=== PATIENT | female | born 1975 | race Caucasian/White ===

== ENCOUNTER 2017-08-18 15:29 | Outpatient (CLI) | payer BC ==
--- NOTE | 2017-08-19 09:25 | Mammography Report ---
DIGITAL SCREENING MAMMOGRAM: 08/18/2017 COMPARISON: 05/20/2014 and 06/01/2012. TECHNIQUE: Bilateral digital CC and MLO projections. FINDINGS: The breast tissue is heterogeneously dense. There is an area of increased density in the mid 12 o'clock position of the right breast, which may represent superimposition of structures. Further evaluation by spot compression views and ultrasound if needed are suggested. Otherwise, no dominant mass, architectural distortion, skin thickening, suspicious microcalcifications or other finding. IMPRESSION: NEGATIVE LEFT BREAST. NEEDS ADDITIONAL EVALUATION RIGHT BREAST BI- RADS 0. STANDARD QUALIFYING STATEMENTS: 1. This examination was reviewed with the aid of Computer-Aided Detection (CAD) . 2. A negative or benign imaging report should not delay biopsy if clinically suspicious findings are present. Consider surgical consultation if warranted. More than 5 % of cancers are not identified by imaging. 3. Dense breasts may obscure an underlying neoplasm. TD: 08/19/2017 09:24 DARIUS
== END 2017-08-18 15:30 | disposition home or self-care (01) ==
LOC: DI.N 15:29
PROVIDERS: ATTEND Physician Assistant Medical
DX: Z12.31 Encounter for screening mammogram for malignant neoplasm of breast (principal); R92.8 Other abnormal and inconclusive findings on diagnostic imaging of breast
CPT/HCPCS: 77067

== ENCOUNTER 2021-07-23 09:26 | Observation (INO) | payer BC, OTHER ==
[2021-07-23] MEDS ORDERED: SODIUM CHLORIDE 0.9% 1,000 ML IV STA (09:38)
--- NOTE | 2021-07-23 10:11 | ED Physician Documentation ---
PD HPI FEMALE - Stated complaint Stated Complaint: FEMALE - Chief complaint Chief Complaint: Abd Pain - History obtained from History obtained from: Patient - Additional information Additional information: The patient comes to the emergency department chief complaint of vaginal bleeding for 2 weeks. The patient states that she has been having shorter heavier periods for several years, but that those have been fairly regular and constant. However, she states her period started 2 weeks ago and just has not stopped. She states she will have some hours to a day or so with no bleeding and then all of a sudden, she passes a whole bunch of clots and has heavy bleeding following. She states she is felt a little bloated in her lower abdomen but denies any actual pain. No nausea or vomiting. No fevers. She is not . No known history of fibroids. She is not on anticoagulation. The patient states she has felt somewhat weak and a little short of breath recently and feels that she is paler than usual. No other complaints at this time. She is sexually active with her , who has had a vasectomy. Review of Systems Ten Systems: 10 systems reviewed and negative Constitutional: reports: Reviewed and negative Eyes: reports: Reviewed and negative Ears: reports: Reviewed and negative Nose: reports: Reviewed and negative Throat: reports: Reviewed and negative Cardiac: reports: Reviewed and negative Respiratory: reports: Reviewed and negative GI: reports: Reviewed and negative : reports: Vaginal bleeding Skin: reports: Reviewed and negative Musculoskeletal: reports: Reviewed and negative Neurologic: reports: Reviewed and negative Psychiatric: reports: Reviewed and negative Endocrine: reports: Reviewed and negative Immunocompromised: reports: Reviewed and negative PD PAST MEDICAL HISTORY - Past Medical History Past Medical History: No - Past Surgical History Past Surgical History: No - Present Medications Home Medications: Ambulatory Orders Medication Instructions Recorded Confirmed Albuterol Sulfate [Proair 90 mcg IH QID PRN 07/23/21 07/23/21 Digihaler] - Allergies Allergies/Adverse Reactions: Allergies Allergy/AdvReac Type Severity Reaction Status Date / Time Penicillins Allergy Unknown Verified 07/23/21 09:35 - Social History Does the pt smoke?: No Smoking Status: Never smoker PD ED PE NORMAL - Vitals Vital signs reviewed: Yes - General General: Alert and oriented X 3, No acute distress, Well developed/nourished - HEENT HEENT: Atraumatic, PERRL, EOMI, Moist mucous membranes - Neck Neck: Supple, no meningeal sign - Cardiac Cardiac: RRR, No murmur - Respiratory Respiratory: No respiratory distress, Clear bilaterally - Abdomen Abdomen: Soft, Non distended, Other (Mild suprapubic tenderness, no rebound or guarding. No palpable masses.) - Derm Derm: Warm and dry, No rash, Other (Moderate pallor) - Extremities Extremities: No deformity, No edema - Neuro Neuro: Alert and oriented X 3, lead nurse 2-12 intact, Normal speech, Other (Grossly intact) - Psych Psych: Normal mood, Normal affect Results - Vitals Vitals: Oxygen O2 Source Room air - Labs Labs: Laboratory Tests 07/23/21 07/23/21 07/23/21 09:48 09:48 09:48 WBC 9.1 RBC 3.01 L Hgb 4.4 L* Hct 18.5 L* MCV 61.5 L MCH 14.6 L MCHC 23.8 L RDW 22.5 H Plt Count 280 Neut # (Auto) 6.4 Lymph # (Auto) 1.9 Hockley # (Auto) 0.5 Eos # (Auto) 0.1 Baso # (Auto) 0.1 Absolute Nucleated RBC 0.04 Nucleated RBC % 0.4 Manual Slide Review Indicated WBC Morphology NORMAL APPEARANCE Platelet Estimate NORMAL (130-450,000) Platelet Morphology NORMAL APPEARANCE RBC Morph Micro Appear 2+ POIKILOCYTOSIS PT 13.3 H INR 1.2 Sodium Potassium Chloride Carbon Dioxide Anion Gap BUN Creatinine Estimated GFR (MDRD) Glucose Calcium Total Bilirubin AST ALT Alkaline Phosphatase Total Protein Albumin Globulin Albumin/Globulin Ratio Lipase Serum HCG, Qual Blood Type O POSITIVE Blood Type Recheck Antibody Screen NEGATIVE Crossmatch IS Only See Detail 07/23/21 07/23/21 07/23/21 09:48 09:48 11:03 WBC RBC Hgb Hct MCV MCH MCHC RDW Plt Count Neut # (Auto) Lymph # (Auto) [place] # (Auto) Eos # (Auto) Baso # (Auto) Absolute Nucleated RBC Nucleated RBC % Manual Slide Review WBC Morphology Platelet Estimate Platelet Morphology RBC Morph Micro Appear PT INR Sodium 136 Potassium 3.5 Chloride 103 Carbon Dioxide 22 Anion Gap 11.0 BUN 14 Creatinine 0.8 Estimated GFR (MDRD) 78 L Glucose 119 H Calcium 8.9 Total Bilirubin 0.7 AST 17 ALT 16 Alkaline Phosphatase 53 Total Protein 7.4 Albumin 4.1 Globulin 3.3 Albumin/Globulin Ratio 1.2 Lipase 30 Serum HCG, Qual NEGATIVE Blood Type Blood Type Recheck O POSITIVE Antibody Screen Crossmatch IS Only - Rads (name of study) pelvic US Radiology: Prelim report reviewed, Final report received, See rad report PD MEDICAL DECISION MAKING - ED course Complexity details: reviewed results, re-evaluated patient, considered differential, d/w patient ED course: The patient was hemodynamically stable in the emergency department. She was given a liter 0.9 normal saline and worked up with labs and ultrasound. The patient was found of a hemoglobin of 4.4. I immediately had her typed and crossed for 2 units of packed red blood cells. Ultrasound showed fibroids, Per preliminary report, though strangely enough, the radiology final report did not make mention of the fibroids. I did mention a left ovarian cyst and no torsion. I spoke with OB on-call, Dr. Garcia, and he did agree to admit the patient to his service. He came and saw her in the emergency department. The patient remained hemodynamically stable throughout the remainder of her stay. Review of the H&P later revealed that the concrete finisher had also noted the fibroid on ultrasound. Departure - Departure Disposition: ED Place in Observation Clinical Impression: Menorrhagia, premenopausal, Severe anemia Uterine fibroid Qualifiers: Uterine leiomyoma location: unspecified location Qualified Code(s): D25.9 - Leiomyoma of uterus, unspecified Condition: Stable Discharge Date/Time: 07/23/21 13:48
[2021-07-23 10:14] LABS: BASOPHILS # (AUTO) 0.1 10^3/uL (0.0-0.1); EOSINOPHILS # (AUTO) 0.1 10^3/uL (0.0-0.7); EOSINOPHILS % (AUTO) 1.3 %; LYMPHOCYTES # (AUTO) 1.9 10^3/uL (1.5-3.5); LYMPHOCYTES % (AUTO) 20.3 %; MEAN CORPUSCULAR HEMOGLOBIN 14.6 pg (27.0-31.0); MEAN CORPUSCULAR HGB CONC 23.8 g/dL (32.0-36.0); MEAN CORPUSCULAR VOLUME 61.5 fL (81.0-99.0); MONOCYTES # (AUTO) 0.5 10^3/uL (0.0-1.0); MONOCYTES % (AUTO) 5.9 %; NEUTROPHILS # (AUTO) 6.4 10^3/uL (1.5-6.6); NEUTROPHILS % (AUTO) 70.1 %; NRBC ABSOLUTE COUNT (AUTO) 0.04 x10^3/uL; NUCLEATED RED BLOOD CELLS AUTO 0.4 /100WBC; PLT - PLATELET COUNT 280 10^3/uL (130-450); RED BLOOD COUNT 3.01 10^6/uL (4.20-5.40); RED CELL DISTRIBUTION WIDTH 22.5 % (12.0-15.0); WHITE BLOOD COUNT 9.1 x10^3/uL (4.8-10.8)
[2021-07-23 10:28] LABS: INR 1.2 (0.8-1.2); PT - PROTHROMBIN TIME 13.3 secs (9.9-12.6)
[2021-07-23 10:31] LABS: HGB - HEMOGLOBIN 4.4 g/dL (12.0-16.0)
[2021-07-23 10:32] LABS: ALBUMIN 4.1 g/dL (3.2-5.5); ALBUMIN/GLOBULIN RATIO 1.2 (1.0-2.2); BILIRUBIN,TOTAL 0.7 mg/dL (0.2-1.0); CALCIUM 8.9 mg/dL (8.5-10.3); CREATININE 0.8 mg/dL (0.4-1.0); HCG,QUALITATIVE BLOOD NEGATIVE; HCT - HEMATOCRIT 18.5 % (37.0-47.0); POTASSIUM 3.5 mmol/L (3.5-5.0); TOTAL PROTEIN 7.4 g/dL (6.7-8.2)
[2021-07-23 10:45] LABS: SLIDE REVIEW? Indicated
[2021-07-23 10:59] LABS: PLATELET ESTIMATE, MANUAL NORMAL (130-450,000) (NORMAL); PLATELET MORPHOLOGY NORMAL APPEARANCE (NORMAL)
[2021-07-23 11:00] LABS: WBC MORPHOLOGY (MULTIPLE) NORMAL APPEARANCE (NORMAL)
--- NOTE | 2021-07-23 11:41 | HISTORY & PHYSICAL EXAMINATION ---
History and Physical - History and Physical HPI: Patient is a 46-year-old -0-2-3 presenting today for heavy vaginal bl eeding. I was consulted day as her bleeding was significant enough to give her hemoglobin of 4.4 and hematocrit of 18.5. She presented today for prolonged bleeding and strange clots. She feels well overall. She started bleeding approximately 2 weeks ago and has had a relatively normal cycle except prolonged now with intermittent clots heavy bleeding then resolution with a small amount of spotting. Her concerns of this keeps reoccurring. She started having irregular cycles approximately 3 years ago but has never had anything this significant. She did skip 1 cycle approximately last July. Currently using her partner's vasectomy for control. Was previously on Depo medroxyprogesterone earlier in life for contraception and had good control with this. All other symptoms reviewed and were negative except per HPI. PMH Denies significant health history PSH No prior surgeries OB History -0-2-3. 3 vaginal deliveries, 2 miscarriages 1 slightly abnormal Pap smear during , but no significant issues since. Last Pap smear 2016. SH Denies previous surgery Family History Father: Coronary artery disease, [place] age 64 Mother: Breast cancer age 53, Paternal grandmother: Diabetes mellitus Maternal grandfather: Coronary artery disease Paternal grandfather: Coronary artery disease Allergies Penicillin Medications None Physical exam: Temp Pulse Resp BP Pulse Ox 97.3 F L 78 20 132/79 H 100 07/23/21 09:30 07/23/21 12:19 07/23/21 12:19 07/23/21 12:19 07/23/21 12:19 General: Alert, oriented, no acute distress Head: Normal cephalic atraumatic Eyes: PERRLA, extraocular motions intact. Respiratory: Normal rate of respiration. No accessory muscle use, normal respiratory effort. Cardiovascular: Regular rate and rhythm Abdomen: Soft, nontender Extremities: Normal range of motion Neuro: Oriented x3. Normal movements Psych: Appropriate mood and affect. Normal judgment and insight : Normal external genitalia, normal hair distribution. Urethra normal without masses or lesions. Urethral meatus normal. Vagina is rugated with normal secretions. Cervix is prominent without lesions. Cervical os is parous. Small amount of clot protruding from cervical os removed with ring forceps, no active bleeding. Uterus is mildly enlarged on bimanual exam. No tenderness to uterus or cervix with palpation. Adnexa are nontender and mobile. Plan 46-year-old -0-2-3 with heavy vaginal bleeding Heavy menstrual bleeding -Plan to admit for observation for transfusion and bleeding control. -Plan to start with medroxyprogesterone 20 mg 3 times daily for 2 weeks. We will follow up in clinic for medroxyprogesterone acetate for long-term management or surgical candidacy. -Patient undecided on surgical outcomes yet, and we discussed increasing hemoglobin via transfusion and iron supplementation and assess symptoms as an outpatient. -This does not appear to be a surgical emergency as she is only intermittently bleeding and is vitally stable. AUB-leiomyoma -while she likely has an ovulatory component to this given her age and perimenopausal state, she does have a prominent, 4 cm, fibroid in her fundus of her uterus. -possibly resectable with hysteroscopy and myosure. -Will discuss at follow up appointment for surgery vs hormonal therapy. -Declined a transvaginal ultrasound today. Will recommend prior to surgery. -Pap smear and endometrial biopsy Pipelle not available in the ER today. Will collect at office visit prior to surgery.
[2021-07-23] MEDS ORDERED: SODIUM CHLORIDE FLUSH 0.9% 10 ML SYRINGE IVP PRN (12:15)
--- NOTE | 2021-07-23 12:23 | Ultrasound Report ---
PROCEDURE: Pelvic w/Doppler Complete INDICATIONS: PELVIC PAIN, RT TECHNIQUE: Real-time transabdominal scanning was performed of the pelvic organs, with image documentation. Dopp ler interrogation was performed of the ovaries bilaterally. COMPARISON: None. FINDINGS: Uterus: Uterus is mildly enlarged measuring 10.7 x 6.8 x 6.9 cm. The volume measures 262.6 cc. Endo metrium measures 5.8 mm in combined thickness. There is a heterogeneous appearance within the uterus . There is a subtle mural focus of heterogeneous echogenicity within the fundal region measuring 4.3 x 3.9 x 3.9 cm. Similar mid posterior subserosal focus is measured at 2.3 x 2.3 x 2.1 cm. Ovaries: Right ovary measures 2.4 x 2.1 x 1.3 cm, volume 3.4 cc. Left ovary measures 3.7 x 3.7 x 2.8 cm, volume 19.5 cc. There is a focus of decreased echogenicity within the left ovary measuring 1.9 x 1.7 x 2.1 cm. Normal appearing arterial and venous waveforms are confirmed to each ovary.] Dopplers within normal l imits. Other: Minimal fluid is noted within the cul-de-sac. IMPRESSION: Simple left pelvic cyst. Doppler interrogation demonstrates normal arterial and venous waveforms to the ovaries bilaterally. N o visualized torsion. Reviewed by: Mariposa Guerrero MD on 07/23/2021 12:21 PM PST Approved by: Mariposa Guerrero MD on 07/23/2021 12:21 PM PST Station ID: [id number]
--- NOTE | 2021-07-23 13:27 | PHARMACY PROGRESS NOTE ---
- Best Possible Medication History Admit Date and Time: 07/23/21 1215 Processed by: Nursing Medication History completed: Yes Secondary Source(s): Pharmacy records, Insurance records As the person ultimately responsible for medication therapy, providers are able to order a medication from an existing home medication list in [facility] via the "Reconcile Routine" prior to Confirmation of that medication by residential direct support professional. Such practice is discouraged except when the physician, in their clinical judgment, deems that a medical need exists for a medication without regard to previous use.
[2021-07-23] MEDS: SODIUM CHLORIDE FLUSH 0.9% 10 ML SYRINGE IVP SCH (17:38)
[2021-07-24] MEDS: SODIUM CHLORIDE FLUSH 0.9% 10 ML SYRINGE IVP SCH (02:10)
[2021-07-24 02:15] LABS: BASOPHILS # (AUTO) 0.1 10^3/uL (0.0-0.1); BASOPHILS % (AUTO) 0.9 %; EOSINOPHILS # (AUTO) 0.2 10^3/uL (0.0-0.7); HCT - HEMATOCRIT 27.1 % (37.0-47.0); HGB - HEMOGLOBIN 8.1 g/dL (12.0-16.0); LYMPHOCYTES # (AUTO) 2.2 10^3/uL (1.5-3.5); LYMPHOCYTES % (AUTO) 24.9 %; MEAN CORPUSCULAR HEMOGLOBIN 20.5 pg (27.0-31.0); MEAN CORPUSCULAR HGB CONC 29.9 g/dL (32.0-36.0); MEAN CORPUSCULAR VOLUME 68.4 fL (81.0-99.0); MONOCYTES # (AUTO) 0.7 10^3/uL (0.0-1.0); MONOCYTES % (AUTO) 7.6 %; NEUTROPHILS # (AUTO) 5.6 10^3/uL (1.5-6.6); NEUTROPHILS % (AUTO) 62.9 %; NRBC ABSOLUTE COUNT (AUTO) 0.06 x10^3/uL; NUCLEATED RED BLOOD CELLS AUTO 0.7 /100WBC; PLT - PLATELET COUNT 221 10^3/uL (130-450); RED BLOOD COUNT 3.96 10^6/uL (4.20-5.40); RED CELL DISTRIBUTION WIDTH 25.7 % (12.0-15.0)
[2021-07-24 02:16] LABS: SLIDE REVIEW? Indicated
[2021-07-24 02:32] LABS: PLATELET ESTIMATE, MANUAL NORMAL (130-450,000) (NORMAL); PLATELET MORPHOLOGY NORMAL APPEARANCE (NORMAL); WBC MORPHOLOGY (MULTIPLE) NORMAL APPEARANCE (NORMAL)
--- NOTE | 2021-07-24 04:31 | Discharge Plan ---
Discharge Plan Problem Reviewed?: Yes Disposition: Home, Self Care Condition: Stable Diet: Regular Activity Restrictions: No Restrictions Shower Restrictions: No Driving Restrictions: No Instruction Topics: ED Fibroids No Smoking: If you smoke, Please STOP! Call for help. Follow-up with: Maria Luisa Bentley PA-C [Primary Care Provider] - Godfrey Garcia MD [Provider Admit Priv/Credential] -
--- NOTE | 2021-07-24 04:47 | DISCHARGE SUMMARY ---
"Discharge Summary Admit Date: 07/23/21 Discharge Date: 07/24/21 Discharging Provider: Godfrey Garcia MD Code Status: Attempt Resuscitation Condition at Discharge: Stable Discharge Disposition: 01 Home, Self Care - DIAGNOSES Admission Diagnoses: Acute on chronic Anemia Abnormal uterine bleeding. Uterine fibroids Discharge Diagnoses with Status of Each Condition: Acute on chronic anemia: Stable. Improved from hemoglobin of four to hemoglobin of eight. Abnormal uterine bleeding: Stable Uterine fibroids: Unchanged - HPI History of Present Illness: Subjective: Patient doing well this morning. Feels improved after blood transfusion. No dizziness or shortness of breath. No chest pain. Bleeding is intermittent and mild. Physical Exam Temp Pulse Resp BP Pulse Ox 97.9 F 91 13 115/69 99 07/24/21 04:47 07/24/21 04:47 07/24/21 04:47 07/24/21 04:47 07/24/21 04:47 Constitutional: alert, no acute distress, well hydrated, well developed, well nourished, appropriate dress. Skin: normal turgor, normal color. Head: atraumatic, normocephalic. Cardiovascular: RRR. Respiratory: no respiratory distress. Abdomen: nondistended, nontender. Spine: normal mobility. Neurologic: normal, sensation intact, motor intact. Psych: affect and mood appropriate, normal interaction, good eye contact. - HOSPITAL COURSE Hospital Course: Patient is a 46-year-old -0-2-3 with acute on chronic blood loss anemia secondary to uterine fibroids causing abnormal uterine bleeding. She presented to [facility] complaining of gush of clots following bleeding that was intermittent. Upon arrival, her hemoglobin of and hematocrit were 4.4/18.5. Abdominal ultrasound showed a 4 cm fundal fibroid that was submucosal, but she declined transvaginal ultrasound. She received 3 units of PRBCs and H/H on recheck was 8.06/14. She also started on medroxyprogesterone 20 mg 3 times daily. She was feeling well after transfusion and vitally stable, so she was discharged in stable condition. Plan to continue the medroxypro gesterone for 2 weeks until follow-up in clinic. At that time can discuss switching to Depo medroxyprogesterone acetate versus surgical intervention. Plan to also get an interim transvaginal ultrasound to reassess her fibroid characteristics and determine surgical candidacy. Patient was discharged from the observation unit in stable condition. - ALLERGIES Allergies/Adverse Reactions: Allergies Allergy/AdvReac Type Severity Reaction Status Date / Time Penicillins Allergy Unknown Verified 07/23/21 09:35 - MEDICATIONS Home Medications: Ambulatory Orders Medication Instructions Recorded Confirmed Albuterol Sulfate [Proair 90 mcg IH QID PRN 07/23/21 07/23/21 Digihaler] Home Medications Other | Comments: Continue medroxyprogsterone 20mg three times a day until your office visit. Start iron supplementation with ferrous sulfate 325 mg twice a day. - LABS Result Diagrams: 07/24/21 02:08 07/23/21 09:48 - FOLLOW UP Follow Up: Godfrey Garcia MD at [facility] on 08/13/2021 at 10 AM. Please call [phone] for appointment details. - TIME SPENT Time Spent in Discharge (Minutes): 30"
[2021-07-24 08:01] VITALS: BP 120/68
== END 2021-07-24 07:45 | disposition home or self-care (01) ==
LOC: ED 09:26 → MS2 12:15
PROVIDERS: ADMIT Obstetrics & Gynecology; ATTEND Obstetrics & Gynecology
DX: D62 Acute posthemorrhagic anemia (principal); D25.9 Leiomyoma of uterus, unspecified; N93.8 Other specified abnormal uterine and vaginal bleeding; Z80.3 Family history of malignant neoplasm of breast; Z82.49 Family history of ischemic heart disease and other diseases of the circulatory system; Z83.3 Family history of diabetes mellitus; Z88.0 Allergy status to penicillin
CPT/HCPCS: 36415; 36430; 76856; 80053; 83690; 84703; 85025; 85610; 86850; 86900; 86901; 86920; 93975; 99284; 99285; A9270; G0378; P9016

== ENCOUNTER 2021-08-07 15:48 | Outpatient (CLI) | payer OTHER ==
--- NOTE | 2021-08-08 08:31 | Ultrasound Report ---
PROCEDURE: Pelvic w/Transvaginal INDICATIONS: UTERINE FIBROIDS, ABN UTERINE BLEEDING TECHNIQUE: Real-time scanning was performed of the pelvic organs, with image documentation. Additional endovagi nal scanning was necessary due to incomplete visualization of the adnexal and endometrial structures by transabdominal scanning. COMPARISON: July 23, 2021. FINDINGS: UTERUS: Anteverted, heterogeneous echotexture, and measures 12.3 x 6.4 x 7.6 cm. The endometrial complex measures 7.6 mm. Small amount of fluid is seen within the canal, which may be physiologic. Multiple ovoid, slightly hypoechoic lesions are seen, most consistent with fibroids. The largest fibroid measures up to 4.9 cm, is located within the midline uterus and is submucosal. The second largest fibroid is seen in the left mid uterus, measures up to 2.5 cm, and is also submuco arlene. Hypoechoic lesions within the cervix, compatible with nabothian cysts. RIGHT OVARY: 3.1 x 1.7 x 2.2 cm. Vol: 5.8 mL. Color-flow projects over the ovarian tissue. LEFT OVARY: 3.5 x 1.4 x 1.6 cm. Vol: 4.1 mL. Color-flow projects over the ovarian tissue. OTHER: None. IMPRESSION: 1.Myomatous change of the uterus. Reviewed by: Abhay Garces MD on 08/08/2021 8:30 AM PDT Approved by: Abhay Garces MD on 08/08/2021 8:30 AM PDT Station ID: [id number]
== END 2021-08-07 15:49 | disposition home or self-care (01) ==
LOC: DI 15:48
PROVIDERS: ATTEND Obstetrics & Gynecology
DX: D25.0 Submucous leiomyoma of uterus (principal); N93.9 Abnormal uterine and vaginal bleeding, unspecified

== ENCOUNTER 2021-08-27 16:30 | Emergency (ER) | payer OTHER ==
[2021-08-27 16:54] LABS: BASOPHILS % (AUTO) 0.6 %; EOSINOPHILS # (AUTO) 0.1 10^3/uL (0.0-0.7); HCT - HEMATOCRIT 34.5 % (37.0-47.0); HGB - HEMOGLOBIN 10.2 g/dL (12.0-16.0); LYMPHOCYTES # (AUTO) 1.3 10^3/uL (1.5-3.5); LYMPHOCYTES % (AUTO) 18.1 %; MEAN CORPUSCULAR HEMOGLOBIN 22.8 pg (27.0-31.0); MEAN CORPUSCULAR HGB CONC 29.6 g/dL (32.0-36.0); MONOCYTES # (AUTO) 0.4 10^3/uL (0.0-1.0); MONOCYTES % (AUTO) 5.8 %; NEUTROPHILS # (AUTO) 5.2 10^3/uL (1.5-6.6); NEUTROPHILS % (AUTO) 73.4 %; PLT - PLATELET COUNT 253 10^3/uL (130-450); RED BLOOD COUNT 4.48 10^6/uL (4.20-5.40); RED CELL DISTRIBUTION WIDTH 24.3 % (12.0-15.0); WHITE BLOOD COUNT 7.1 x10^3/uL (4.8-10.8)
[2021-08-27 17:04] LABS: INR 1.2 (0.8-1.2); PT - PROTHROMBIN TIME 13.6 secs (9.9-12.6)
[2021-08-27 17:07] VITALS: BP 130/75
[2021-08-27 17:08] LABS: CALCIUM 9.2 mg/dL (8.5-10.3); CREATININE 0.8 mg/dL (0.4-1.0); POTASSIUM 3.7 mmol/L (3.5-5.0)
[2021-08-27] MEDS ORDERED: TRANEXAMIC ACID 1,000 MG in SODIUM CHLORIDE 0.9% 100ML 100 ML IV STA (17:14)
[2021-08-27] MEDS ORDERED: TRANEXAMIC ACID IN NACL 1,000 MG/100 ML BAG IV STA (17:17)
[2021-08-27 17:19] LABS: PLATELET MORPHOLOGY NORMAL APPEARANCE (NORMAL)
--- NOTE | 2021-08-27 17:19 | ED Physician Documentation ---
History of Present Illness - Stated complaint Stated Complaint: FEMALE /HEAVY BLEEDING - Chief complaint Chief Complaint: Abd Pain - History obtained from History obtained from: Patient - History of Present Illness Timing: Today Pain level max: 0 Pain level now: 0 - Additonal information Additional information: Patient is a 46-year-old female with known uterine fibroids scheduled to have a Hysterectomy in 1 week. She states she started having heavy vaginal bleeding today. She is currently on progesterone. Nothing makes it better or worse. She is not lightheaded, dizzy. No chest pain. No shortness of breath. She does state that she took a home Covid test 2 days ago which was reportedly positive. Patient was asymptomatic and fully vaccinated. Review of Systems Constitutional: denies: Fever, Chills Respiratory: denies: Cough GI: denies: Nausea, Vomiting, Diarrhea Skin: denies: Rash Musculoskeletal: denies: Neck pain, Back pain Neurologic: denies: Headache PD PAST MEDICAL HISTORY - Past Medical History Cardiovascular: None Respiratory: Asthma Neuro: Migraines Endocrine/Autoimmune: None GI: None : None Psych: Obsessive compulsive disorder Musculoskeletal: None Derm: None - Past Surgical History Past Surgical History: No - Present Medications Home Medications: Ambulatory Orders Medication Instructions Recorded Confirmed Albuterol Sulfate [Proair 90 mcg IH QID PRN 07/23/21 08/27/21 Digihaler] Tranexamic Acid 1,300 mg PO BID #20 tablet 08/27/21 - Allergies Allergies/Adverse Reactions: Allergies Allergy/AdvReac Type Severity Reaction Status Date / Time Penicillins Allergy Unknown Verified 08/27/21 17:07 - Social History Does the pt smoke?: No Smoking Status: Never smoker PD ED PE NORMAL - Vitals Vital signs reviewed: Yes - General General: Alert and oriented X 3, No acute distress - HEENT HEENT: Moist mucous membranes - Cardiac Cardiac: RRR, Strong equal pulses - Respiratory Respiratory: No respiratory distress, Clear bilaterally - Abdomen Abdomen: Soft, Non tender, Non distended - Derm Derm: Warm and dry - Extremities Extremities: No edema - Neuro Neuro: Alert and oriented X 3 - Psych Psych: Normal mood, Normal affect Results - Vitals Vitals: Vital Signs - 24 hr 08/27/21 17:03 Temperature 37.1 C Heart Rate 98 Respiratory 16 Rate Blood Pressure 130/75 O2 Saturation 100 Oxygen O2 Source Room air - Labs Labs: Laboratory Tests 08/27/21 08/27/21 08/27/21 14:56 16:44 16:44 WBC 7.1 RBC 4.48 Hgb 10.2 L Hct 34.5 L MCV 77.0 L MCH 22.8 L MCHC 29.6 L RDW 24.3 H Plt Count 253 Neut # (Auto) 5.2 Lymph # (Auto) 1.3 L Kerr # (Auto) 0.4 Eos # (Auto) 0.1 Baso # (Auto) 0.0 Absolute Nucleated RBC 0.00 Nucleated RBC % 0.0 Platelet Estimate NORMAL (130-450,000) Platelet Morphology NORMAL APPEARANCE RBC Morph Micro Appear 1+ OVALOCYTES PT INR Sodium Potassium Chloride Carbon Dioxide Anion Gap BUN Creatinine Estimated GFR (MDRD) Glucose Calcium Serum HCG, Qual NEGATIVE Blood Type O POSITIVE Antibody Screen NEGATIVE 08/27/21 08/27/21 08/27/21 16:44 16:44 19:37 WBC 8.9 RBC 4.38 Hgb 9.9 L Hct 33.7 L MCV 76.9 L MCH 22.6 L MCHC 29.4 L RDW 24.2 H Plt Count 259 Neut # (Auto) 7.1 H Lymph # (Auto) 1.2 L Kerr # (Auto) 0.4 Eos # (Auto) 0.1 Baso # (Auto) 0.1 Absolute Nucleated RBC 0.00 Nucleated RBC % 0.0 Platelet Estimate Platelet Morphology RBC Morph Micro Appear PT 13.6 H INR 1.2 Sodium 138 Potassium 3.7 Chloride 103 Carbon Dioxide 20 L Anion Gap 15.0 H BUN 9 Creatinine 0.8 Estimated GFR (MDRD) 78 L Glucose 101 H Calcium 9.2 Serum HCG, Qual Blood Type Antibody Screen PD MEDICAL DECISION MAKING - ED course Complexity details: reviewed old records, reviewed results, re-evaluated patient, considered differential, d/w patient, d/w [employer] security consultant ED course: 46-year-old female with menorrhagia. Known uterine fibroids. Awaiting a hysterectomy next week. No significant anemia on blood work today. Discussed the case with Dr. Garcia, gynecology, we will give the patient 1 g of TXA here. The patient was given the tranexamic acid, bleeding decreased significantly. Repeat H&H does not show any significant drop in her hemoglobin. Patient is not lightheaded, dizzy or short of breath. She is comfortable going home at this time. If she continues to bleed, we will trial her on oral TXA at home as well. If she starts to develop any symptoms or her bleeding worsens, she will return again to the emergency department. Dr. Garcia will follow up the patient as planned. Patient counseled regarding signs and symptoms for which I believe and urgent re-evaluation would be necessary. Patient with good understanding of and agreement to plan and is comfortable going home at this time This document was made in part using voice recognition software. While efforts are made to proofread this document, sound alike and grammatical errors may occur. Departure - Departure Disposition: Home, Self Care Clinical Impression: Menorrhagia, premenopausal Uterine fibroid Qualifiers: Uterine leiomyoma location: unspecified location Qualified Code(s): D25.9 - Leiomyoma of uterus, unspecified Condition: Good Instructions: ED Bleeding Menstrual Heavy, ED Fibroids Follow-Up: Godfrey Garcia MD [Provider Admit Priv/Credential] - Within 1 week Prescriptions: Tranexamic Acid 1,300 mg PO BID #20 tablet Comments: Continue the progesterone. If you are still bleeding tomorrow, you can add the tranexamic acid tablets. Please follow-up with Dr. Garcia for further care. Please return if you worsen including heavier bleeding, lightheadedness, shortness of breath, chest pain or other new or worrisome symptoms. Your blood counts have remained stable throughout your emergency department stay. Your prescriptions were sent to [facility] ([place], [place]). Discharge Date/Time: 08/27/21 20:19
[2021-08-27 17:20] LABS: HCG,QUALITATIVE BLOOD NEGATIVE
[2021-08-27 17:20] LABS: PLATELET ESTIMATE, MANUAL NORMAL (130-450,000) (NORMAL)
[2021-08-27 19:47] LABS: BASOPHILS # (AUTO) 0.1 10^3/uL (0.0-0.1); BASOPHILS % (AUTO) 0.6 %; EOSINOPHILS # (AUTO) 0.1 10^3/uL (0.0-0.7); EOSINOPHILS % (AUTO) 1.1 %; HCT - HEMATOCRIT 33.7 % (37.0-47.0); HGB - HEMOGLOBIN 9.9 g/dL (12.0-16.0); LYMPHOCYTES # (AUTO) 1.2 10^3/uL (1.5-3.5); LYMPHOCYTES % (AUTO) 13.5 %; MEAN CORPUSCULAR HEMOGLOBIN 22.6 pg (27.0-31.0); MEAN CORPUSCULAR HGB CONC 29.4 g/dL (32.0-36.0); MEAN CORPUSCULAR VOLUME 76.9 fL (81.0-99.0); MONOCYTES # (AUTO) 0.4 10^3/uL (0.0-1.0); MONOCYTES % (AUTO) 4.7 %; NEUTROPHILS # (AUTO) 7.1 10^3/uL (1.5-6.6); NEUTROPHILS % (AUTO) 79.8 %; PLT - PLATELET COUNT 259 10^3/uL (130-450); RED BLOOD COUNT 4.38 10^6/uL (4.20-5.40); RED CELL DISTRIBUTION WIDTH 24.2 % (12.0-15.0); WHITE BLOOD COUNT 8.9 x10^3/uL (4.8-10.8)
== END 2021-08-27 20:19 | disposition home or self-care (01) ==
LOC: ED 16:30
DX: N92.4 Excessive bleeding in the premenopausal period (principal); D25.9 Leiomyoma of uterus, unspecified
CPT/HCPCS: 36415; 80048; 84703; 85025; 85610; 86850; 86900; 86901; 96374; 99283

== ENCOUNTER 2021-09-03 08:47 | Outpatient (CLI) | payer OTHER ==
[2021-09-03 09:00] LABS: BASOPHILS # (AUTO) 0.1 10^3/uL (0.0-0.1); BASOPHILS % (AUTO) 0.7 %; EOSINOPHILS # (AUTO) 0.2 10^3/uL (0.0-0.7); EOSINOPHILS % (AUTO) 2.5 %; HCT - HEMATOCRIT 31.3 % (37.0-47.0); HGB - HEMOGLOBIN 9.2 g/dL (12.0-16.0); LYMPHOCYTES # (AUTO) 1.7 10^3/uL (1.5-3.5); LYMPHOCYTES % (AUTO) 23.6 %; MEAN CORPUSCULAR HEMOGLOBIN 22.7 pg (27.0-31.0); MEAN CORPUSCULAR HGB CONC 29.4 g/dL (32.0-36.0); MEAN CORPUSCULAR VOLUME 77.1 fL (81.0-99.0); MEAN PLATELET VOLUME 9.8 fL (7.9-10.8); MONOCYTES # (AUTO) 0.5 10^3/uL (0.0-1.0); MONOCYTES % (AUTO) 6.3 %; NEUTROPHILS # (AUTO) 4.7 10^3/uL (1.5-6.6); NEUTROPHILS % (AUTO) 66.3 %; PLT - PLATELET COUNT 405 10^3/uL (130-450); RED BLOOD COUNT 4.06 10^6/uL (4.20-5.40); RED CELL DISTRIBUTION WIDTH 22.2 % (12.0-15.0); WHITE BLOOD COUNT 7.1 x10^3/uL (4.8-10.8)
== END 2021-09-03 08:48 | disposition home or self-care (01) ==
LOC: LAB 08:47
PROVIDERS: ATTEND Obstetrics & Gynecology
DX: Z01.812 Encounter for preprocedural laboratory examination (principal); D25.9 Leiomyoma of uterus, unspecified; N93.9 Abnormal uterine and vaginal bleeding, unspecified
CPT/HCPCS: 36415; 85025; 86850; 86900; 86901

== ENCOUNTER 2021-09-04 08:37 | Day surgery (SDC) | payer OTHER ==
[~2021-09-04 08:37] MED LIST: ACETAMINOPHEN 325 MG TABLET PO ONE; CEFAZOLIN SODIUM IN 0.9 % NACL 2 GM/50 ML BAG IV ONE; CELECOXIB 100 MG CAPSULE PO ONE; GABAPENTIN 400 MG CAPSULE ONE
[2021-09-04 08:55] LABS: HCG UR QUAL NEGATIVE
[2021-09-04] MEDS ORDERED: LACTATED RINGERS 1,000 ML IV ONE (09:04)
--- NOTE | 2021-09-04 09:31 | ANESTHESIA ---
Pre-Anesthesia VS, & Labs - Diagnosis uterine fibroids, abnormal uterine bleeding - Procedure total laparoscopic hysterectomy with cystoscopy Vital Signs: Temp Pulse Resp BP Pulse Ox 99.9 C H 107 H 16 128/74 100 09/04/21 08:55 09/04/21 08:55 09/04/21 08:55 09/04/21 08:55 09/04/21 08:55 Height: 5 ft 2 in Weight (kg): 66 kg Body Mass Index: 26.6 BMI Classification: Overweight - NPO >8 hours - Is Patient ?: No - Lab Results Current Lab Results: Hgb 9.2 Lab results reviewed: Yes Home Medications and Allergies Home Medications: Ambulatory Orders medroxyPROGESTERone [Provera] 10 mg PO DAILY 08/28/21 Albuterol Sulfate [Proair Digihaler] 90 mcg IH QID PRN 07/23/21 medroxyPROGESTERone [Provera] 10 mg PO DAILY 08/28/21 Allergies/Adverse Reactions: Allergies Allergy/AdvReac Type Severity Reaction Status Date / Time Penicillins Allergy Unknown Verified 08/27/21 17:07 Anes History & Medical History - Anesthetic History Family history of Anesthesia Complications: Denies Family history of Malignant Hyperthermia: Denies - Medical History Cardiovascular: reports: None Pulmonary: reports: Asthma (last used inhaler yesterday) Gastrointestinal: reports: None Urinary: reports: None Neuro: reports: Migraines Musculoskeletal: reports: None Endocrine/Autoimmune: reports: None Blood Disorders: reports: None Skin: reports: None Smoking Status: Never smoker Psychosocial: reports: No issues indicated History of Cancer?: No Other Past Medical History: Recent covid infection. symptoms started 08/19, positive test 08/26. no longer symptomatic. Risk/benefit discussed and patient wishes to proceed. Exam General: Alert, Oriented x3, Cooperative, No acute distress Dental: WNL Mouth Openin Fingerbreadth Neck Mobility: Normal Mallampati classification: II Thyromental Distance: 4-6 cm Respiratory: Lungs clear, Normal breath sounds, No respiratory distress, No accessory muscle use Cardiovascular: Regular rate, Normal S1, Normal S2, No murmurs Mental/Cognitive Status: Alert/Oriented X3, Normal for patient Plan Anesthesia Type: General Consent for Procedure(s) Verified and Reviewed: Yes Code Status: Attempt Resuscitation ASA classification: 2-Mild systemic disease Is this case an emergency?: No
[2021-09-04] MEDS ORDERED: LIDOCAINE-MPF 2% 5 ML VIAL ONE (09:52)
[2021-09-04] MEDS ORDERED: MIDAZOLAM 2 MG/2 ML VIAL ONE (09:52)
[2021-09-04] MEDS ORDERED: fentaNYL 100 MCG/2 ML VIAL ONE ×2 (09:52→11:11)
[2021-09-04] MEDS ORDERED: PROPOFOL 200 MG/20 ML VIAL IVP ONE (09:52)
[2021-09-04] MEDS ORDERED: ROCURONIUM 50 MG/5 ML VIAL ONE ×2 (09:53→12:16)
[2021-09-04] MEDS ORDERED: SODIUM CHLORIDE 0.9% 10 ML VIAL IVP ONE ×2 (09:57→09:58)
[2021-09-04] MEDS ORDERED: KETAMINE 500 MG/10 ML VIAL ONE (09:57)
[2021-09-04] MEDS ORDERED: LIDOCAINE 2%-EPI 1:100000 20 ML MDV ONE (10:05)
[2021-09-04] MEDS ORDERED: BUPIVACAINE 0.25% PF 30 ML VIAL ONE (10:05)
[2021-09-04] MEDS ORDERED: PHENYLEPHRINE 10 MG/ML VIAL ONE (10:37)
[2021-09-04] MEDS ORDERED: METHYLENE BLUE 0.5% 50 MG/10 ML AMPULE ONE ×2 (10:57→14:33)
[2021-09-04] MEDS ORDERED: LIDOCAINE 2%-EPI 1:100000 20 ML MDV SUBQ ONE ×2 (11:11)
[2021-09-04] MEDS ORDERED: BUPIVACAINE 0.25% PF 30 ML VIAL SUBQ ONE ×2 (11:11)
[2021-09-04] MEDS ORDERED: METHYLENE BLUE 0.5% 50 MG/10 ML AMPULE IR ONE (11:13)
[2021-09-04] MEDS ORDERED: ONDANSETRON 4 MG/2 ML VIAL ONE (11:24)
[2021-09-04] MEDS ORDERED: HYDROmorphone 1 MG/ML CARPUJECT ONE (11:56)
[2021-09-04] MEDS ORDERED: VASOPRESSIN 20 UNIT/ML VIAL ONE (12:35)
[2021-09-04] MEDS ORDERED: MORPHINE 2 MG/ML CARPUJECT IVP PRN (12:40)
[2021-09-04] MEDS ORDERED: NALOXONE 0.4 MG/ML VIAL IVP PRN (12:40)
[2021-09-04] MEDS ORDERED: HYDROmorphone 0.5 MG/0.5 ML SYRINGE IVP PRN (12:40)
[2021-09-04] MEDS ORDERED: ONDANSETRON 4 MG/2 ML VIAL IVP PRN (12:40)
[2021-09-04] MEDS ORDERED: ATROPINE ABBOJECT 1 MG/10 ML SYRINGE IVP PRN (12:40)
[2021-09-04] MEDS ORDERED: METOCLOPRAMIDE 10 MG/2 ML VIAL IVP PRN (12:40)
[2021-09-04] MEDS ORDERED: fentaNYL 100 MCG/2 ML VIAL IVP PRN (12:40)
[2021-09-04] MEDS ORDERED: ePHEDrine 50 MG/ML VIAL IVP PRN (12:40)
[2021-09-04] MEDS ORDERED: VASOPRESSIN 20 UNIT/ML VIAL IVP ONE (12:43)
[2021-09-04] MEDS ORDERED: LACTATED RINGERS 1,000 ML IV SCH (13:00)
[2021-09-04] MEDS ORDERED: LIDOCAINE JELLY 2% 6 ML JEL.PF.APP UR ONE (14:40)
[2021-09-04] MEDS ORDERED: LIDOCAINE JELLY 2% 6 ML JEL.PF.APP ONE (14:47)
[2021-09-04] MEDS ORDERED: ONDANSETRON ODT 4 MG TABLET TL PRN (15:00)
[2021-09-04] MEDS ORDERED: SIMETHICONE CHEW 80 MG TABLET PO PRN (15:00)
[2021-09-04] MEDS ORDERED: oxyCODONE 5 MG TABLET PO PRN (15:00)
[2021-09-04] MEDS ORDERED: SCOPOLAMINE PATCH TOP PRN (15:00)
--- NOTE | 2021-09-04 15:05 | OPERATIVE REPORT ---
Operative Report - General Procedure Date: 09/04/21 Planned Procedure: Total laparoscopic hysterectomy with cystoscopy Pre-Op Diagnosis: heavy, prolonged uterine bleeding, chronic blood loss anemia Procedure Performed: Laparoscopic-assisted vaginal hysterectomy for uterus greater than 250 g (365 g). Cystoscopy Post Op Diagnosis: Heavy, prolonged uterine bleeding, chronic blood loss anemia - Procedure Note Primary Surgeon: Godfrey Garcia MD Secondary Surgeon: Rupal Bernal MD Anesthesia Provider: Giovanny Bravo CRNA Anesthesia Technique: General ET tube Pathology: Uterus, cervix, bilateral uterine tubes IV Fluids (mL): 3,200 Estimated Blood Loss (mL): 150 Urine Output (mL): 300 Complications: None - Other Other Information/Narrative: Counseling Patient was counseled on the risks benefits and alternatives of laparoscopic hysterectomy. The risk of bleeding including the risk for transfusion and transfusion risks were reviewed. She was counseled on the risk of infection. She was counseled on the risk of injury to surrounding organs including but not limited to the bowel bladder ureters or ovaries possibly requiring further more extensive surgery possibly at a later date. She was counseled on the possible risk of conversion to an open procedure especially if scar tissue or bleeding was encountered or if an above-noted injury occurred. He is counseled that removal of the ovaries would result in menopause. She was counseled that removal of her uterus would prevent her from having children in the future. Qu estions were answered the patient gave informed consent for the procedure. Technique Patient was taken to the operating room where a timeout was performed the patient was given preoperative antibiotics. General endotracheal anesthesia was found to be adequate. Patient was positioned on the operating table in dorsal lithotomy position in [facility] stirrups. A bear hugger was placed and pressure points were padded. Patient was then prepped and draped in the normal sterile fashion using Hibiclens vaginally and ChloraPrep abdominally. An exam under anesthesia was performed and was consistent with her preoperative evaluation. A Mi catheter was placed under sterile conditions. Methylene blue was inserted through the Mi and clamped. A bivalve speculum was used to visualize the cervix and was grasped with a single-tooth tenaculum. Uterus was sounded to 11 cm and a uterine manipulator was placed through the uterus, and the balloons were inflated. This device was then attached to the uterine mechanical manipulator. Attention was turned to the abdomen in a sterile fashion. A 5 mm umbilical incision was made with a scalpel following infusion of local anesthetic. A 5 mm trocar and sleeve were inserted through the incision into the peritoneum under laparoscopic visualization. Pneumoperitoneum was obtained with carbon dioxide. Inspection of the underlying bowel and vasculature reveals no injuries from laparoscopic entry. Next a 5 mm right lower quadrant trocar was placed under laparoscopic visualization lateral to the course of the inferior epigastric vessels. Next a left 5 mm lower quadrant trocar was placed under laparoscopic visualization lateral to the course of the inferior epigastric vessels. Trendelenberg positioning was obtained allowing the bowel to fall from the pelvis. A largeuterus containing several fibroids was noted and care was taken to achieve adequate visualization, but this was difficult at times. A LigaSure was used to dissect right left fallopian tube from the ovary. The right round ligament was coagulated and transected using the LigaSure device. The broad ligament was opened. The course of the ureter was identified deep and lateral to our operative field. The utero-ovarian vessels were coagulated and transected. Progress was made down the broad ligament to the level of the uterine vessels. Uterus was elevated using the uterine manipulator, the uterine vessel was skeletonized identified doubly coagulated and transected using LigaSure device at the level of the colpotomy cup. The bladder flap was created across the anterior surface of the uterus. Attention was turned to the left side. The left fallopian tube was dissected from the ovary. The right round ligament was coagulated and transected using the LigaSure device. The broad ligament was opened and the course of the ureter was identified deep and lateral to our operative field. The utero-ovarian vessels were coagulated and transected. Progress was made down the broad ligament to the level of the uterine vessel. Uterus was elevated using the uterine manipulator, the uterine vessel was skeletonized identified doubly coagulated and transected using the LigaSure device at the level of the colpotomy. The bladder flap was further developed across the anterior surface the uterus below the colpotomy ring. At this point the difficulty of manipulating the harmonic scalpel was deemed to be greater than the risk of a vaginal procedure, so the attention was taken to the vaginal portion of the procedure. A weighted speculum was placed into the vagina and the cervix was grasped with a single-toothed tenaculum. Dilute vasopressin was injected in the cervix the cervix was circumferentially inscribed using bovie cautery. This allowed dissection with a combination of Metzenbaum scissors and blunt dissection with a Ray-Joshua, and allowed entry into the anterior peritoneum. The David was then placed to elevate the bladder out of the operative field. The posterior aspect was then dissected and allowed and [place] speculum placed in the posterior vagina to protect the rectum. The uterosacral ligaments were then identified, clamped and suture ligated using 0 vicryl. The cardinal ligaments were then identified, clamped, cut, and suture ligated using 0 vicryl. At this point, the uterus was freed from the surrounding tissue and was delivered through the vagina. The uterus was placed on a scale and weighed 365g. The vaginal cuff was closed with a running suture of the left uteralsacral ligament to the right with an 0- vicryl, incorporating both uteralsacral ligaments into the vaginal cuff. The vaginal cuff was then closed in an right to left direction. A second layer of the mucosa was then closed. The vaginal cuff was hemostatic. A cystoscopy was performed, but the left ureter showed decreased flow. Cut and removed leaving the anterior closure intact. Due to this, the second layer of the vaginal cuff was the cystoscopy was repeated showing good ureteral jets from bilateral ureteral orifices. The patient was then cleaned and drained and legs brought down out of dorsal lithotomy position simultaneously. Sponge, lap, and needle counts were reported correct by the nursing staff following the procedure. I appreciate the assistance of Dr. Bernal during this procedure, and her assistance in retraction, visualization, dissection, and overall assistance during the case were instrumental to the patient's wellbeing.
[2021-09-04] MEDS ORDERED: LACTATED RINGERS 600 ML IV ONE (15:19)
--- NOTE | 2021-09-04 15:29 | ANESTHESIA POST OP EVALUATION ---
Anesthesia Post Eval - Post Anesthesia Eval Vitals: Last Vital Signs Temp 36.4 C L 09/04/21 15:25 Pulse 88 09/04/21 15:25 Resp 14 09/04/21 15:25 BP 120/66 09/04/21 15:25 Pulse Ox 95 09/04/21 15:25 CV Function Including HR & BP: Stable Pain Control: Satisfactory Nausea & Vomiting: Negative Mental Status: Baseline Respiratory Status: Airway Patent Hydration Status: Satisfactory Anesthesia Complications: None
[2021-09-04] MEDS: ACETAMINOPHEN 500 MG TABLET PO SCH ×2 (15:59→23:40)
[2021-09-04] MEDS: KETOROLAC 30 MG/ML VIAL IVP SCH ×2 (16:00→21:26)
[2021-09-04] MEDS: LACTATED RINGERS 1,000 ML IV SCH (16:00)
--- NOTE | 2021-09-04 16:46 | PHARMACY PROGRESS NOTE ---
- Best Possible Medication History Admit Date and Time: Processed by: Nursing Medication History completed: Yes Patient Interview: Completed Secondary Source(s): Pharmacy records, Insurance records As the person ultimately responsible for medication therapy, providers are able to order a medication from an existing home medication list in [facility] via the "Reconcile Routine" prior to Confirmation of that medication by nursing support worker. Such practice is discouraged except when the physician, in their clinical judgment, deems that a medical need exists for a medication without regard to previous use.
[2021-09-04] MEDS: DOCUSATE SODIUM 100 MG CAPSULE PO SCH (21:26)
[2021-09-04] MEDS: HYDROmorphone 1 MG/ML CARPUJECT IVP PRN (22:04)
[2021-09-05] MEDS: LACTATED RINGERS 1,000 ML IV SCH (02:02)
[2021-09-05] MEDS: HYDROmorphone 1 MG/ML CARPUJECT IVP PRN (03:13)
[2021-09-05] MEDS: KETOROLAC 30 MG/ML VIAL IVP SCH ×2 (03:13→09:11)
[2021-09-05 05:15] LABS: BASOPHILS % (AUTO) 0.4 %; EOSINOPHILS # (AUTO) 0.1 10^3/uL (0.0-0.7); EOSINOPHILS % (AUTO) 1.2 %; HCT - HEMATOCRIT 25.6 % (37.0-47.0); HGB - HEMOGLOBIN 7.3 g/dL (12.0-16.0); LYMPHOCYTES # (AUTO) 1.7 10^3/uL (1.5-3.5); LYMPHOCYTES % (AUTO) 18.2 %; MEAN CORPUSCULAR HEMOGLOBIN 22.1 pg (27.0-31.0); MEAN CORPUSCULAR HGB CONC 28.5 g/dL (32.0-36.0); MEAN CORPUSCULAR VOLUME 77.3 fL (81.0-99.0); MEAN PLATELET VOLUME 10.4 fL (7.9-10.8); MONOCYTES # (AUTO) 0.7 10^3/uL (0.0-1.0); MONOCYTES % (AUTO) 7.1 %; NEUTROPHILS # (AUTO) 6.7 10^3/uL (1.5-6.6); NEUTROPHILS % (AUTO) 72.9 %; PLT - PLATELET COUNT 329 10^3/uL (130-450); RED BLOOD COUNT 3.31 10^6/uL (4.20-5.40); RED CELL DISTRIBUTION WIDTH 21.6 % (12.0-15.0); WHITE BLOOD COUNT 9.2 x10^3/uL (4.8-10.8)
[2021-09-05 05:17] LABS: SLIDE REVIEW? Indicated
[2021-09-05 05:33] LABS: PLATELET ESTIMATE, MANUAL NORMAL (130-450,000) (NORMAL); PLATELET MORPHOLOGY NORMAL APPEARANCE (NORMAL); WBC MORPHOLOGY (MULTIPLE) NORMAL APPEARANCE (NORMAL)
[2021-09-05] MEDS: ACETAMINOPHEN 500 MG TABLET PO SCH (06:33)
[2021-09-05 07:36] VITALS: BP 119/60
[2021-09-05] MEDS: DOCUSATE SODIUM 100 MG CAPSULE PO SCH (08:04)
--- NOTE | 2021-09-05 09:22 | DISCHARGE SUMMARY ---
Discharge Summary Admit Date: 09/04/21 Discharge Date: 09/05/21 Discharging Provider: Godfrey Garcia MD Code Status: Attempt Resuscitation Condition at Discharge: Good Discharge Disposition: 01 Home, Self Care - DIAGNOSES Admission Diagnoses: Abnormal uterine bleeding Chronic Blood loss anemia Discharge Diagnoses with Status of Each Condition: Abnormal uterine bleeding chronic blood loss anemia Status post LAVH. - HPI History of Present Illness: Subjective Patient reports she is doing well. Denies heavy bleeding. Ambulating. Pelvic and abdominal pain well-controlled. Tolerating oral intake. Diet: Regular. Mi in place, will remove this AM. Passing flatus. Denies feeling lightheaded, dizzy or excessively fatigued. Physical Exam Constitutional: alert, no acute distress, well hydrated, well developed, well nourished, appropriate dress. Head: atraumatic, normocephalic. Cardiovascular: RRR. Respiratory: no respiratory distress. Abdomen: Soft, nondistended, nontender. Incisions clean, dry, and intact. Neurologic: normal, sensation intact, motor intact. Psych: affect and mood appropriate, normal interaction, good eye contact. - HOSPITAL COURSE Hospital Course: Patient presented for planned hysterectomy due to abnormal uterine bleeding due to fibroids and failing hormone therapy. She had an uncomplicated LAVH and subsequent cystoscopy. Postoperative course was unremarkable and she was discharged on postoperative day 1. - ALLERGIES Allergies/Adverse Reactions: Allergies Allergy/AdvReac Type Severity Reaction Status Date / Time Penicillins Allergy Unknown Verified 08/27/21 17:07 - MEDICATIONS Home Medications: Ambulatory Orders Medication Instructions Recorded Confirmed Albuterol Sulfate [Proair 90 mcg IH QID PRN 07/23/21 08/28/21 Digihaler] Tranexamic Acid 1,300 mg PO BID #20 tablet 08/27/21 08/28/21 medroxyPROGESTERone [Provera] 10 mg PO DAILY 08/28/21 08/28/21 Acetaminophen [Acetaminophen Extra 1,000 mg PO Q8H PRN #60 tablet 09/05/21 Strength] Docusate Sodium 100Mg Capsule 100 - 200 mg PO BID PRN #60 cap 09/05/21 [Colace 100Mg Capsule] Ibuprofen [Motrin] 600 mg PO Q6H PRN #30 tab 09/05/21 oxyCODONE [Roxicodone] 2.5 - 5 mg PO Q4H PRN #12 tablet 09/05/21 - LABS Result Diagrams: 09/05/21 04:09 - FOLLOW UP Follow Up: 2 weeks with [facility]. - TIME SPENT Time Spent in Discharge (Minutes): 20
== END 2021-09-05 10:00 | disposition home or self-care (01) ==
LOC: SDS 08:37 → MS2 15:26 → SDS 09-05 10:00
PROVIDERS: ATTEND Obstetrics & Gynecology
PROC: 0UT7FZZ Resection of Bilateral Fallopian Tubes, Via Natural or Artificial Opening With Percutaneous Endoscopic Assistance (ICD-10-PCS; 2021-09-04)
PROC: 0UT9FZZ Resection of Uterus, Via Natural or Artificial Opening With Percutaneous Endoscopic Assistance (ICD-10-PCS; principal; 2021-09-04 09:00)
DX: D25.9 Leiomyoma of uterus, unspecified (principal); D25.0 Submucous leiomyoma of uterus; N93.9 Abnormal uterine and vaginal bleeding, unspecified; D50.0 Iron deficiency anemia secondary to blood loss (chronic); Z86.16 Personal history of COVID-19; J45.20 Mild intermittent asthma, uncomplicated
CPT/HCPCS: 36415; 58554; 81025; 85025; A9270; J0690; J1170; J3490; J7120; Q0162

== ENCOUNTER 2021-11-30 10:06 | Outpatient (CLI) | payer OTHER ==
--- NOTE | 2021-12-05 17:37 | Mammography Report ---
BILATERAL DIGITAL SCREENING MAMMOGRAM 3D/2D WITH EXAGGERATED CC: 11/30/2021 CLINICAL: Routine screening. Changed from diagnostic to screen per Dr. Murguia due to lack of recent i maging since 2018. Family history of breast cancer. Mother with breast cancer. Comparison is made to exams dated: 08/18/2017 mammogram, 05/20/2014 mammogram, and 06/01/2012 mammogram - [facility]. The tissue of both breasts is heterogeneously dense. This may lower t he sensitivity of mammography. There are 4 round, equal density, well-circumscribed masses in the right breast which have increased in size from the prior exam from 2018. These very likely represent cysts although this is not entirel y definitive. IMPRESSION: INCOMPLETE: NEEDS ADDITIONAL IMAGING EVALUATION Four well-circumscribed round right breast masses, increased in size from 2018, favored to represent cysts. A diagnostic ultrasound of the right breast is recommended. Based on the Tyrer Cuzick model (a risk assessment model) the patients lifetime risk is 9.4% and her 10 year risk is 1.7%. According to the ACR, ACS, and NCCN guidelines, an annual breast MRI exam wilber g with mammogram is recommended if the patients lifetime risk is 20% or greater. This exam was interpreted at Station ID: [id number]. NOTE: For mammograms, a report in lay terms will be sent to the patient. Approximately 15% of breast malignancies will not be visualized mammographically. In the management of a palpable breast mass, a negative mammogram must not discourage biopsy of a clinically suspicious lesion. Electronically Signed By: Pollo Murguia M.D. jr/:11/30/2021 11:07:25 ACR BI-RADS Category 0: Incomplete 3340F PARENCHYMAL PATTERN: (D) - The breast(s) demonstrate(s) heterogeneously dense fibroglandular parenchy ma. BI-RADS CATEGORY: (0) - 0 Ultrasound [id number] Immediate follow-up LATERALITY: (B)
== END 2021-11-30 10:07 | disposition home or self-care (01) ==
LOC: DI 10:06
PROVIDERS: ATTEND Obstetrics & Gynecology
DX: Z12.31 Encounter for screening mammogram for malignant neoplasm of breast (principal); N63.0 Unspecified lump in unspecified breast; Z80.3 Family history of malignant neoplasm of breast

== ENCOUNTER 2022-06-25 08:39 | Outpatient (CLI) | payer OTHER ==
--- NOTE | 2022-06-26 12:43 | Ultrasound Report ---
LIMITED ULTRASOUND OF RIGHT BREAST AND AXILLA: 06/25/2022 CLINICAL: Short term follow up of the right breast. Comparison is made to exams dated: 12/19/2021 ultrasound, 11/30/2021 mammogram, 08/18/2017 mammogram, and 05/20/2014 mammogram - [facility]. Color flow and real-time ultrasound of the right breast 3-4 o'clock, 6 o'clock, 9 o'clock, retroareol ar, and axilla regions were performed. Noonan scale images of the real-time examination were reviewed. There is a stable 1.6 cm x 1.6 cm x 1 cm oval mass with a circumscribed margin in the right breast at 9 o'clock posterior depth 8 cm from the nipple. This oval mass is hypoechoic with posterior acousti c enhancement. This correlates with mammography findings. Color flow imaging demonstrates that ther e is vascularity present. There also is a stable 0.6 cm x 0.5 cm x 0.3 cm oval mass with a circumscribed margin in the right br east at 3 o'clock middle depth 2 cm from the nipple. This oval mass is hypoechoic with posterior aco ustic enhancement. Additionally, there is a benign 2.2 cm x 1.7 cm x 0.5 cm oval cyst in the right breast at 6 o'clock i n the retroareolar region. This oval cyst is anechoic with posterior acoustic enhancement. This abn ormality is not significantly changed and correlates with mammography findings. No significant abnormalities were seen sonographically in the right axilla. IMPRESSION: PROBABLY BENIGN Stable 1.6 cm mass in the right breast at 9 o'clock posterior depth most likely is a fibroadenoma and is probably benign. Stable 0.6 cm mass in the right breast at 3 o'clock middle depth most likely is a fibroadenoma and is probably benign. The 2.2 cm simple cyst in the right breast retroareolar region is similar in size and is benign. No enlarged right axillary lymph nodes. A follow-up ultrasound in 6 months is recommended to demonstrate stability. Patient will be due for mammogram at that time. Exam findings were conveyed to the patient. This exam was interpreted at Station ID: [id number]. Electronically Signed By: Jose Ambriz M.D. slc/:06/25/2022 10:25:31 Ultrasound BI-RADS: 3 Probably benign BI-RADS CATEGORY: (3) - 3 Mammo and [place] [id number] 6 month follow-up LATERALITY: (B)
== END 2022-06-25 08:40 | disposition home or self-care (01) ==
LOC: DI 08:39
PROVIDERS: ATTEND Obstetrics & Gynecology
DX: R92.8 Other abnormal and inconclusive findings on diagnostic imaging of breast (principal); N60.01 Solitary cyst of right breast

== ENCOUNTER 2022-12-19 07:42 | Outpatient (CLI) | payer OTHER ==
--- NOTE | 2022-12-23 11:25 | Mammography Report ---
BILATERAL DIGITAL DIAGNOSTIC MAMMOGRAM 3D/2D: 12/19/2022 CLINICAL: Patient returns for a 6 month follow up of the left breast, due for bilateral exam. Comparison is made to exams dated: 11/30/2021 mammogram, 08/18/2017 mammogram, 05/20/2014 mammogram, and 06/01/2012 mammogram - [facility]. Both breasts are heterogeneously dense, which may obscure small masses (category c / 51-75% glandular tissue). There are multiple oval, circumscribed masses seen in the right breast, which are stable since prior mammogram 11/30/2021. There are no significant masses, calcifications, or other findings seen in the left breast. IMPRESSION: INCOMPLETE: NEEDS ADDITIONAL IMAGING EVALUATION Multiple oval, circumscribed masses in the right breast, stable since 11/30/2021. Further characteriza tion of these masses with targeted right breast ultrasound is recommended, which will immediately fol low this exam. Based on the Tyrer Cuzick model (a risk assessment model) the patients lifetime risk is 9.9% and her 10 year risk is 1.9%. According to the ACR, ACS, and NCCN guidelines, an annual breast MRI exam wilber g with mammogram is recommended if the patients lifetime risk is 20% or greater. This exam was interpreted at Station ID: Unknown. NOTE: For mammograms, a report in lay terms will be sent to the patient. Approximately 15% of breast malignancies will not be visualized mammographically. In the management of a palpable breast mass, a negative mammogram must not discourage biopsy of a clinically suspicious lesion. Electronically Signed By: Melida Johnson M.D. esb/:12/20/2022 22:24:50 ACR BI-RADS Category 0: Incomplete 3340F PARENCHYMAL PATTERN: (D) - The breast(s) demonstrate(s) heterogeneously dense fibroglandular parenchy ma. BI-RADS CATEGORY: (0) - 0 Unspecified - other recall n/a LATERALITY: (B)
--- NOTE | 2022-12-23 11:25 | Ultrasound Report ---
LIMITED ULTRASOUND OF RIGHT BREAST: 12/19/2022 CLINICAL: Short term follow up of the right breast. Comparison is made to exams dated: 06/25/2022 ultrasound, 12/19/2021 ultrasound, and 11/30/2021 mammogram - [facility]. Color flow ultrasound of the right breast 3-4 o'clock, 6 o'clock, and 9 o'clock regions was performed . [place]onan scale images of the real-time examination were reviewed. Stable 1.6 cm hypoechoic oval mass with a circumscribed margin in the right breast at 9 o'clock, 8 cm from the nipple. Stable 0.4 cm hypoechoic oval mass with a circumscribed margin in the right breast at 3 o'clock, 2 cm from the nipple. Right breast 2.2 cm simple cyst at 6 o'clock in the retroareolar region. IMPRESSION: PROBABLY BENIGN 1) Stable oval circumscribed masses at 9:00 and 3:00, unchanged since ultrasound 12/19/2021. Findings a re probably benign. Recommend right breast ultrasound in 1 year to demonstrate 2 year stability. Phyllis ent will be due for bilateral mammogram at that time. 2) Benign simple cyst at 6:00 in the retroareolar region. This exam was interpreted at Station ID: Unknown. Electronically Signed By: Melida van/:12/20/2022 22:41:17 Entry: - 12/23/2022 11:14:47 Ultrasound BI-RADS: 3 Probably benign BI-RADS CATEGORY: (3) - 3 Ultrasound [id number] 12 month follow-up LATERALITY: (R)
== END 2022-12-19 07:43 | disposition home or self-care (01) ==
LOC: DI 07:42
PROVIDERS: ATTEND Obstetrics & Gynecology
DX: R92.8 Other abnormal and inconclusive findings on diagnostic imaging of breast (principal); N60.01 Solitary cyst of right breast